=== PATIENT | female | born 1960 | race Caucasian/White ===

== ENCOUNTER 2016-06-15 12:15 | Emergency (ER) | payer OTHER ==
[~2016-06-15] VITALS: Ht 162.6 cm; Wt 104.5 kg
[~2016-06-15 12:15] MED LIST: AMBIEN 10MG10 M1 PO; CARDI-OMEGA1000 MG PO; ESTRING0.0075 MG/ VG; EXCEDRIN TENSION HA PO; LOTENSIN 1010 MG/TAB PO; LYRICA300 MG PO; MULTIPLE VITAMI1 TAB PO; NEXIUM 40MG40 MG PO; PHILLIPS1 TAB PO; REGLAN 10MG10 MG/TAB PO; REMERON30 MG PO; ULTRAM 50MG TAB50 MG; VITAMIN D1000 IU PO
[2016-06-15 12:16] VITALS: TEMP 100.4
[2016-06-15 12:42] LABS: MEAN CELL VOLUME 93 fl (80.0-100.0); MEAN CORPUSCULAR HGB CONC 32 g/dl (33.0-37.0); MEAN PLATELET VOLUME 10.1 fl (7.4-10.4); PLATELET COUNT 172 K/mm3 (130-400); RED BLOOD COUNT 3.56 M/mm3 (4.10-5.30); REDCELL DISTRIBUTION WIDTH-CV 14.3 % (11.5-14.5); WHITE BLOOD COUNT 12.1 K/mm3 (4.8-10.8)
[2016-06-15] MEDS ORDERED: ULTRAM 50MG TAB50 MG PO (12:49)
[2016-06-15] MEDS ORDERED: DIFLUCAN 100MG100 MG PO (12:49)
[2016-06-15] MEDS ORDERED: TOPAMAX50 MG PO (12:49)
[2016-06-15] MEDS ORDERED: CYMBALTA 60MG60 MG PO (12:50)
[2016-06-15] MEDS ORDERED: ZOCOR 20MG20 MG PO (12:50)
[2016-06-15] MEDS ORDERED: FLEXERIL 1010 MG/TAB PO (12:51)
[2016-06-15] MEDS ORDERED: MOBIC15 MG PO (12:51)
[2016-06-15 12:53] LABS: ADD PATHOLOGY DIFF REVIEW NO; HEMATOCRIT 33.2 % (37.0-47.0); HEMOGLOBIN 10.5 g/dl (12.5-16.0); MEAN CORPUSCULAR HEMOGLOBIN 29 pg (27.0-31.0)
[2016-06-15] MEDS ORDERED: KLONOPIN 1MG1 MG PO (12:53)
[2016-06-15 12:54] LABS: ADJUSTED CALCIUM 9.3 mg/dL (8.4-10.2); ALBUMIN 3.4 gm/dL (3.5-5.0); BILIRUBIN,TOTAL 0.8 mg/dL (0.0-1.0); CALCIUM 8.8 mg/dL (8.4-10.2); CREATININE, serum 1.36 mg/dL (0.52-1.25); TOTAL PROTEIN 6.4 gm/dL (6.4-8.2)
[2016-06-15 13:00] LABS: INFLUENZA B NEGATIVE
[2016-06-15 13:29] LABS: BAND 39 % (0-10); EOSINOPHIL 2 % (0-4); METAMYELOCYTE 1 % (0-0); NEUTROPHILS 50 % (42.0-75.2); PLATELET ESTIMATE NORMAL (NORMAL); TOTAL CELLS COUNTED 100
[2016-06-15 14:13] VITALS: BP 117/64; PULSE 111
[2016-06-15] MEDS ORDERED: AMOXICILLIN 50500 MG PO (14:36)
== END 2016-06-15 15:18 | disposition home or self-care (01) ==
LOC: COL.ER 12:15
PROVIDERS: Family Medicine
DX: S82.832A Other fracture of upper and lower end of left fibula, initial encounter for closed fracture (principal); W01.0XXA Fall on same level from slipping, tripping and stumbling without subsequent striking against object, initial encounter; Y92.009 Unspecified place in unspecified non-institutional (private) residence as the place of occurrence of the external cause; J02.0 Streptococcal pharyngitis; E86.0 Dehydration; R06.02 Shortness of breath; I10 Essential (primary) hypertension
CPT/HCPCS: J0696; J2405; J7030; Q9967

== ENCOUNTER 2016-10-06 12:30 | Outpatient (RCR) | payer OTHER ==
[~2016-10-06 12:30] MED LIST changes: +AMOXICILLIN 50500 MG PO; +CYMBALTA 60MG60 MG PO; +DIFLUCAN 100MG100 MG PO; +FLEXERIL 1010 MG/TAB PO; +KLONOPIN 1MG1 MG PO; +MOBIC15 MG PO; +TOPAMAX50 MG PO; +ULTRAM 50MG TAB50 MG PO; +ZOCOR 20MG20 MG PO
== END 2016-10-14 12:51 | disposition home or self-care (01) ==
LOC: WSPT 12:30
DX: S82.64XD Nondisplaced fracture of lateral malleolus of right fibula, subsequent encounter for closed fracture with routine healing (principal); X58.XXXD Exposure to other specified factors, subsequent encounter

== ENCOUNTER → 2017-03-08 | Outpatient (CLI) | payer MEDICARE | LOC: COL.RAD 09:32 | DX: M47.817 Spondylosis without myelopathy or radiculopathy, lumbosacral region (principal) ==

== ENCOUNTER → 2017-03-16 | Outpatient (CLI) | payer MEDICARE | LOC: MHCPAIN 10:04 | DX: G89.29 Other chronic pain (principal); M47.27 Other spondylosis with radiculopathy, lumbosacral region | CPT/HCPCS: G0463 ==

== ENCOUNTER → 2017-03-28 | Outpatient (CLI) | payer MEDICARE | LOC: COL.RAD 09:43 | DX: M48.02 Spinal stenosis, cervical region (principal); M47.812 Spondylosis without myelopathy or radiculopathy, cervical region ==

== ENCOUNTER → 2017-03-31 | Outpatient (CLI) | payer MEDICARE | LOC: MHCPAIN 08:03 | DX: M47.817 Spondylosis without myelopathy or radiculopathy, lumbosacral region (principal) ==

== ENCOUNTER → 2017-04-06 | Outpatient (CLI) | payer MEDICARE | LOC: MHCPAIN 10:32 | DX: G89.29 Other chronic pain (principal); M47.817 Spondylosis without myelopathy or radiculopathy, lumbosacral region; M53.3 Sacrococcygeal disorders, not elsewhere classified | CPT/HCPCS: G0463 ==

== ENCOUNTER → 2017-04-28 | Outpatient (CLI) | payer MEDICARE | LOC: MHCPAIN 09:09 | DX: M47.817 Spondylosis without myelopathy or radiculopathy, lumbosacral region (principal) ==

== ENCOUNTER → 2017-05-03 | Outpatient (CLI) | payer MEDICARE | LOC: MHCPAIN 10:26 | DX: G89.29 Other chronic pain (principal); M47.817 Spondylosis without myelopathy or radiculopathy, lumbosacral region; M53.3 Sacrococcygeal disorders, not elsewhere classified | CPT/HCPCS: G0463 ==

== ENCOUNTER → 2017-05-19 | Outpatient (CLI) | payer MEDICARE | LOC: MHCPAIN 09:20 | DX: M47.817 Spondylosis without myelopathy or radiculopathy, lumbosacral region (principal) | CPT/HCPCS: J1100; J2250; J3010 ==

== ENCOUNTER → 2017-05-26 | Outpatient (CLI) | payer MEDICARE | LOC: MHCPAIN 09:37 | DX: M47.817 Spondylosis without myelopathy or radiculopathy, lumbosacral region (principal) | CPT/HCPCS: J1100; J2250; J3010 ==

== ENCOUNTER → 2017-07-12 | Outpatient (CLI) | payer MEDICARE | LOC: MHCPAIN 08:46 | DX: G89.29 Other chronic pain (principal); M47.817 Spondylosis without myelopathy or radiculopathy, lumbosacral region; M53.3 Sacrococcygeal disorders, not elsewhere classified | CPT/HCPCS: G0463 ==

== ENCOUNTER → 2017-07-21 | Outpatient (CLI) | payer MEDICARE | LOC: MHCPAIN 08:25 | DX: M53.3 Sacrococcygeal disorders, not elsewhere classified (principal) | CPT/HCPCS: G0260; J1040; Q9967 ==

== ENCOUNTER → 2017-08-17 | Outpatient (CLI) | payer MEDICARE | LOC: MHCPAIN 09:05 | DX: G89.29 Other chronic pain (principal); M47.817 Spondylosis without myelopathy or radiculopathy, lumbosacral region; M53.3 Sacrococcygeal disorders, not elsewhere classified; M79.1 Myalgia; M79.2 Neuralgia and neuritis, unspecified | CPT/HCPCS: G0463 ==

== ENCOUNTER → 2018-09-11 | Outpatient (CLI) | payer MEDICARE | LOC: MC.RAD 10:04 | DX: Z12.31 Encounter for screening mammogram for malignant neoplasm of breast (principal) ==

== ENCOUNTER → 2021-04-24 | Outpatient (CLI) | payer MEDICARE ==
[~2021-04-24] MED LIST changes: +AMITRIPTYLINE H25 M1 PO; +CEPHALEXIN500 M1 PO; +LYRICA 100MG C100 M1 PO; +LYRICA 50MG CAP50 MG PO; -LYRICA300 MG PO; +PHENERGAN W/CO120 M1 PO
== END ==
LOC: COL.RAD 07:47
DX: I25.10 Atherosclerotic heart disease of native coronary artery without angina pectoris (principal); S09.90XS Unspecified injury of head, sequela

== ENCOUNTER → 2021-12-15 | Outpatient (CLI) | payer MEDICARE | LOC: COL.RAD 10:23 | DX: N18.32 Chronic kidney disease, stage 3b (principal) ==

== ENCOUNTER 2022-08-31 16:26 | Outpatient (RCR) | payer MEDICARE | END 2022-08-31 16:30 | LOC: MKS.ESL.PT 16:26 | DX: R51.9 Headache, unspecified (principal) ==

== ENCOUNTER 2023-03-11 13:30 | Outpatient (RCR) | payer MEDICARE, BC, OTHER ==
[~2023-03-11 13:30] MED LIST changes: +AMBIEN CR 12.12.5 MG PO; +GLUMETZA500 MG PO; +INDERAL 20MG20 MG PO; +LOTENSIN40 MG PO; +LYRICA200 MG PO; +ZANAFLEX CAPSULE6 MG PO
== END 2023-03-12 | disposition home or self-care (01) ==
LOC: WSPT
DX: M48.00 Spinal stenosis, site unspecified (principal)